=== PATIENT | male | born 1950 | race Caucasian/White ===

== ENCOUNTER → 2016-07-31 | Outpatient (CLI) | payer OTHER ==
[2015-06-20 12:31] VITALS: BP 144/79
== END ==
LOC: LAB 08:15
PROVIDERS: ATTEND Internal Medicine Gastroenterology
DX: Z86.010 Personal history of colon polyps (principal)
CPT/HCPCS: 82270

== ENCOUNTER → 2016-11-27 | Outpatient (CLI) | payer OTHER ==
[2015-06-20 12:31] VITALS: BP 144/79
[2016-11-27 14:21] LABS: BASOPHILS # (AUTO) 0.1 X10^3/uL (0.0-0.1); BASOPHILS % (AUTO) 0.7 % (0.2-1.0); EOSINOPHILS # (AUTO) 0.3 x10^3/uL (0.0-0.2); EOSINOPHILS % (AUTO) 3.9 % (0.9-2.9); HEMATOCRIT 47.7 % (42.0-54.0); HEMOGLOBIN 16.5 g/dL (13.5-18.0); LYMPHOCYTES # (AUTO) 2.1 X10^3/uL (1.3-2.9); LYMPHOCYTES % (AUTO) 30.1 % (21.0-51.0); MEAN CORPUSCULAR HEMOGLOBIN 29.5 pg (27.0-34.0); MEAN CORPUSCULAR HGB CONC 34.6 g/dL (33.0-35.0); MEAN CORPUSCULAR VOLUME 85.4 fL (80.0-100.0); MEAN PLATELET VOLUME 7.6 fL (7.4-11.0); MONOCYTES # (AUTO) 0.8 x10^3/uL (0.3-0.8); MONOCYTES % (AUTO) 11.1 % (0.0-13.0); NEUTROPHILS # (AUTO) 3.9 x10^3/uL (2.2-4.8); NEUTROPHILS % (AUTO) 54.2 % (42.0-75.0); PLATELET COUNT 241 X10^3/uL (150.0-450.0); RED BLOOD COUNT 5.59 X10^6/uL (4.7-6.0); RED CELL DISTRIBUTION WIDTH 13.7 % (11.6-16.5); WHITE BLOOD COUNT 7.1 X10^3/uL (3.6-10.0)
[2016-11-27 19:55] LABS: CRYPTOSPORIDIUM PARVUM ANTIGEN NEGATIVE (NEGATIVE); GIARDIA LAMBLIA ANTIGEN NEGATIVE (NEGATIVE)
== END ==
LOC: LAB 13:37
PROVIDERS: ATTEND Internal Medicine Gastroenterology
DX: K59.09 Other constipation (principal); R10.84 Generalized abdominal pain; R19.5 Other fecal abnormalities
CPT/HCPCS: 36415; 82705; 85025; 87045; 87205; 87328; 87329; 87336; 87427; 87493; 87899

== ENCOUNTER → 2017-03-18 | Outpatient (CLI) | payer OTHER ==
[2015-06-20 12:31] VITALS: BP 144/79
== END ==
LOC: LAB 08:47
PROVIDERS: ATTEND Internal Medicine Gastroenterology
DX: K64.8 Other hemorrhoids (principal)
CPT/HCPCS: 82270

== ENCOUNTER → 2017-05-14 | Outpatient (CLI) | payer OTHER ==
[2015-06-20 12:31] VITALS: BP 144/79
[2017-05-14 10:33] LABS: CRYPTOSPORIDIUM PARVUM ANTIGEN NEGATIVE (NEGATIVE); GIARDIA LAMBLIA ANTIGEN NEGATIVE (NEGATIVE); STOOL FOR WBC POSITIVE (NEGATIVE)
== END ==
LOC: LAB 08:11
PROVIDERS: ATTEND Internal Medicine Gastroenterology
DX: R59.1 Generalized enlarged lymph nodes (principal); R19.5 Other fecal abnormalities
CPT/HCPCS: 82270; 82705; 83630; 87045; 87328; 87329; 87336; 87338; 87427; 87493; 87899